=== PATIENT | male | born 1960 | race Caucasian/White ===

== ENCOUNTER 2019-05-01 12:47 | Inpatient (IN) | payer OTHER ==
[2019-05-01 16:00] VITALS: BMI 40.8
--- NOTE | 2019-05-01 17:46 | HP ---
CIWA Score Nausea/Vomitin-No Nausea/No Vomiting Muscle Tremors: 3 Anxiety: 3 Agitation: 3 Paroxysmal Sweats: 3 (Increased facial moisture) Orientation: 0-Oriented Tacttile Disturbances: 0-None Auditory Disturbances: 0-None Visual Disturbances: 0-None Headache: 0-None Present CIWA-Ar Total Score: 12 - Admission Criteria OASAS Guidelines: Admission for Medically Managed Detox: Requires at least one of the followin. CIWA greater than 12 2. Seizures within the past 24 hours 3. Delirium tremens within the past 24 hours 4. Hallucinations within the past 24 hours 5. Acute intervention needed for co occurring medical disorder 6. Acute intervention needed for co occurring psychiatric disorder 7. Severe withdrawal that cannot be handled at a lower level of care (continued vomiting, continued diarrhea, abnormal vital signs) requiring intravenous medication and/or fluids 8. Patient presents the following: CIWA greater than 12 (B/), Acute intervention needed for co-occurring med or psych disorder (B/P: 162/101) Admission Criteria Met: Admission criteria met Admission ROS [facility] Chief Complaint: I'm here for Alcohol detox Allergies/Adverse Reactions: Allergies Allergy/AdvReac Type Severity Reaction Status Date / Time haloperidol [From Haldol] Allergy Severe Rash Verified 05/01/19 15:37 History of Present Illness: First admission for this 59 yo who presents w/ alcohol withdrawal seeking detox. Utox: Neg FANTA: 0.0 Alcohol use began at age 14. States amount of use varies. States recently 4-5 cans daily. Sometimes w/ hard liquor. PMHx: HTN, Heart problem; Asthma; Pre-DM; Hypothyroid; Arthritis Swollen legs; Skin problems Current medications verified at [facility] - who has no record of levothyroxine. . Patient states is/was on Levothyroxine and picked up from [facility] ([phone]). States thinks it's been a couple of months since stopping. Pharmacy closed and unable to verify. MHHx: Schizo-affective disorder, Depression. Mood Swings. Past hx SI. Denies current thoughts of harming self or others. SHx: Homeless. Unemployed(SSI); Has legal issues to be taken care of. Search Terms: James Aguilar, 1960 Search Date: 05/01/2019 05:45:56 PM The Drug Utilization Report below displays all of the controlled substance prescriptions, if any, that your patient has filled in the last twelve months. The information displayed on this report is compiled from pharmacy submissions to the Department, and accurately reflects the information as submitted by the pharmacies. This report was requested by: Mikayla Abbasi Exam Limitations: No Limitations - Ebola screening Have you traveled outside of the country in the last 21 days: No Have you had contact with anyone from an Ebola affected area: No Have you been sick,other than usual withdrawal symptoms: No Do you have a fever: No - Review of Systems Constitutional: Chills EENT: reports: Cataracts, Blurred Vision, Dental Problems (Dentures. Chews and swallows ok.) Respiratory: reports: SOB with Exertion Cardiac: reports: No Symptoms Reported GI: reports: Diarrhea (Multiple watery brown BM's), Indigestion (Acid reflux) : reports: Burning (Urinary burning 1 week ago. Denies blood or burning at this time) Musculoskeletal: reports: Joint Pain (Dully ankle pain - increases w/ walking.) , Other (Pain in bones in chest x many years. No pain at this time) Integumentary: reports: Rash (On both legs. (R) > (L) x years;) Neuro: reports: Tremors, Unsteady Gait (Uses a cane) Endocrine: reports: No Symptoms Reported Hematology: reports: No Symptoms Reported Psychiatric: reports: Orientated x3, Agitated, Anxious, Depressed (Denies S/) Patient History - Patient Medical History Hx Asthma: No Hx Chronic Obstructive Pulmonary Disease (COPD): No Hx Cardiac Disorders: No Hx Hypertension: Yes Hx Seizures: Yes Hx Diabetes: No Hx Gastrointestinal Disorders: No Hx Genitourinary Disorders: No Hx Sexually Transmitted Disorders: Yes (Gonnerhea) Hx Renal Disease (ESRD): No Hx Depression: Yes Hx Suicide Attempt: Yes Hx Schizophrenia: No - Patient Surgical History Past Surgical History: No Hx Neurologic Surgery: No Hx Cataract Extraction: No Hx Cardiac Surgery: No Hx Lung Surgery: No Hx Breast Surgery: No Hx Breast Biopsy: No Hx Abdominal Surgery: No Hx Appendectomy: No Hx Cholecystectomy: No Hx Genitourinary Surgery: No Hx Section: No Hx Orthopedic Surgery: Yes (Elbow sx 1986) - PPD History Previous Implant?: Yes (Will order TB Gold test) Documented Results: Negative w/o proof Implanted On Prior [facility] Admission?: No PPD to be Administered?: No - Reproductive History Patient : No - Smoking Cessation Smoking history: Former smoker Have you smoked in the past 12 months: No Hx Chewing Tobacco Use: No Initiated information on smoking cessation: Yes 'Breaking Loose' booklet given: 05/01/19 - Substance & Tx. History Hx Alcohol Use: Yes Hx Substance Use: Yes Substance Use Type: Alcohol Hx Substance Use Treatment: Yes (detox, [facility] residence in past) - Substances abused Alcohol Substance route: Oral Frequency: Daily Amount used: it depends on whats available Age of first use: 14 Date of last use: 04/28/19 Admission Physical Exam BHS - Vital Signs Vital Signs: Vital Signs - 24 hr 05/01/19 05/01/19 15:36 17:11 Temperature 96.5 F L 96.5 F L Pulse Rate 76 76 Respiratory 20 20 Rate Blood Pressure 162/101 H 162/101 H - Physical General Appearance: Yes: Mild Distress, Obese, Tremorous, Sweating (Increased facial moisture), Anxious HEENTM: Yes: EOMI, Hearing grossly Normal, Normal Voice, ESTEBAN, Pharynx Normal Respiratory: Yes: Lungs Clear (Pulse Ox = 99%), Normal Breath Sounds, No Respiratory Distress Neck: Yes: No masses,lesions,Nodules, Supple Breast: Yes: Breast Exam Deferred Cardiology: Yes: Regular Rhythm, Regular Rate (HR: 82), S1, S2, Edema (Pitting edema toes to Below knee) Abdominal: Yes: Non Tender, Soft, Increased Bowel Sounds, Protuberent ( Increased abdominal adiposity) Genitourinary: Yes: Within Normal Limits Back: Yes: Normal Inspection Musculoskeletal: Yes: full range of Motion, Joint Stiffness (Ankle stiffness), Other (Gait steady w/ use of cane) Extremities: Yes: Normal Capillary Refill, Tremors (Mild tremors felt), Pedal Edema Neurological: Yes: internet marketing coordinator II-XII NML intact, Fully Oriented, Alert, Motor Strength 5/5 Integumentary: Yes: Warm, Diaphoresis (Increased facial moisture), Rash (dry, flaky skin of feet.), Other (Thickened, darkened, skin of both shins, trophic changes (R) > (L) . Pedla pulses palpated) Lymphatic: Yes: Within Normal Limits - Diagnostic (1) Alcohol dependence with uncomplicated withdrawal Current Visit: Yes Status: Acute (2) Essential (primary) hypertension Current Visit: Yes Status: Chronic (3) Obesity, morbid, BMI 40.0-49.9 Current Visit: Yes Status: Chronic (4) History of asthma Current Visit: Yes Status: Acute (5) Thyroid disorder Current Visit: Yes Status: Suspected (6) Tinea pedis Current Visit: Yes Status: Chronic Qualifiers: Laterality: bilateral Qualified Code(s): B35.3 - Tinea pedis (7) Skin and subcutaneous tissue disease Current Visit: Yes Status: Chronic Cleared for Admission [facility] - Detox or Rehab [facility] Level of Care: Medically Managed Detox Regimen/Protocol: Not Applicable (Will do a ativan detox. ) Claeared for Rehab Admission: No Breathalyzer - Breathalyzer Breathalyzer: 0 Urine Drug Screen - Test Device Lot number: [id number] Expiration date: 01/20/21 - Control Is test valid?: Yes - Results Drug screen NEGATIVE: Yes Inpatient Rehab Admission - Rehab Decision to Admit Inpatient rehab admission?: No
[2019-05-01] MEDS ORDERED: MELATONIN 5 MG TABLETS PO PRN (18:20)
[2019-05-01] MEDS ORDERED: MAG HYDROX/AL HYDROX/SIMETH 30 ML UNIT-DOSE CUP PO PRN (18:20)
[2019-05-01] MEDS ORDERED: METHOCARBAMOL 500 MG TABLET PO PRN (18:20)
[2019-05-01] MEDS ORDERED: MENTHOL/PHENOL 1 EACH UD MM PRN (18:20)
[2019-05-01] MEDS ORDERED: ACETAMINOPHEN 325 MG TABLET (FP) PO PRN ×2 (18:20)
[2019-05-01] MEDS ORDERED: MAGNESIUM CITRATE 300 ML BOTTLE PO PRN (18:20)
[2019-05-01] MEDS ORDERED: MAGNESIUM HYDROX 2400MG/30ML ORAL SUSPENSION 30 ML CUP PO PRN (18:20)
[2019-05-01] MEDS ORDERED: IBUPROFEN 400 MG TABLET (FP) PO PRN (18:20)
[2019-05-01] MEDS ORDERED: LORazepam 1 MG TABLET PO PRN (18:20)
[2019-05-01] MEDS ORDERED: ALBUTEROL SO4 0.083% IH SOL 2.5 MG/3 ML VIAL.NEB. NEB PRN (18:26)
[2019-05-01] MEDS ORDERED: cloNIDine HCL 0.1 MG TABLET PO ONE (19:25)
[2019-05-01] MEDS: TOLNAFTATE 1% CREAM 15 GM TUBE TP SCH (23:01)
[2019-05-01] MEDS: THIAMINE HCL 100 MG TABLET (FP) PO SCH (23:01)
[2019-05-01] MEDS: LORazepam 2 MG TABLET PO SCH (23:02)
[2019-05-02] MEDS: LORazepam 2 MG TABLET PO SCH ×4 (06:30→22:43)
[2019-05-02] MEDS: PANTOPRAZOLE 40 MG TABLET (FP) PO SCH (08:09)
[2019-05-02 10:04] LABS: HEMATOCRIT 44.7 % (35.4-49); HEMOGLOBIN 14.5 GM/dL (11.7-16.9); MCH 28.3 pg (25.7-33.7); MCHC 32.5 g/dl (32.0-35.9); MEAN CELL VOLUME 86.9 fl (80-96); MEAN PLT VOLUME 7.3 fl (7.5-11.1); PLATELET COUNT 311 K/MM3 (134-434); RBC 5.14 M/mm3 (4.00-5.60); RDW 15.3 % (11.9-15.9); WHITE BLOOD COUNT 6.6 K/mm3 (4.0-10.0)
[2019-05-02 10:20] LABS: ALBUMIN 3.2 g/dl (3.4-5.0); BILIRUBIN,TOTAL 0.5 mg/dL (0.2-1); BLOOD UREA NITROGEN 12.6 mg/dL (7-18); CALCIUM 9.3 mg/dL (8.5-10.1); CREATININE 0.7 mg/dL (0.55-1.3); POTASSIUM 3.5 mmol/L (3.5-5.1); TOT PROT 6.5 g/dl (6.4-8.2)
[2019-05-02] MEDS: HYDROCHLOROTHIAZIDE 12.5 MG CAPSULE (FP) PO SCH (10:23)
[2019-05-02] MEDS: amLODIPine BESYLATE 5 MG TABLET (FP) PO SCH (10:23)
[2019-05-02] MEDS: PRENATAL VITAMINS W/ FOLIC ACID TABLET (FP) PO SCH (10:23)
[2019-05-02] MEDS: ASPIRIN COATED 81 MG TABLET.EC PO SCH (10:23)
[2019-05-02] MEDS: TOLNAFTATE 1% CREAM 15 GM TUBE TP SCH ×2 (11:26→22:43)
[2019-05-02] MEDS: TIOTROPIUM BROMIDE 2.5 MCG (SPIRIVA) RESPIMAT INHALER IH SCH (11:26)
--- NOTE | 2019-05-02 11:37 | PN ---
S CIWA - CIWA Score Nausea/Vomitin-Mild Nausea/No Vomiting Muscle Tremors: 2 Anxiety: 2 Agitation: 2 Paroxysmal Sweats: 1-Minimal Palms Moist Orientation: 0-Oriented Tacttile Disturbances: 1-Very Mild Itch/Numbness Auditory Disturbances: 0-None Visual Disturbances: 0-None Headache: 1-Very Mild CIWA-Ar Total Score: 10 BHS Progress Note (SOAP) Subjective: alert,irritable,anxious,interrupted sleep,tremor Objective: 05/02/19 11:36 Vital Signs Temperature 97.2 F L 05/02/19 09:34 Pulse Rate 103 H 05/02/19 09:34 Respiratory Rate 20 05/02/19 09:34 Blood Pressure 107/68 05/02/19 09:34 O2 Sat by Pulse Oximetry (%) Laboratory Last Values WBC 6.6 K/mm3 (4.0-10.0) 05/02/19 08:00 RBC 5.14 M/mm3 (4.00-5.60) 05/02/19 08:00 Hgb 14.5 GM/dL (11.7-16.9) 05/02/19 08:00 Hct 44.7 % (35.4-49) 05/02/19 08:00 MCV 86.9 fl (80-96) 05/02/19 08:00 MCH 28.3 pg (25.7-33.7) 05/02/19 08:00 MCHC 32.5 g/dl (32.0-35.9) 05/02/19 08:00 RDW 15.3 % (11.9-15.9) 05/02/19 08:00 Plt Count 311 K/MM3 (134-434) 05/02/19 08:00 MPV 7.3 fl (7.5-11.1) L 05/02/19 08:00 Sodium 143 mmol/L (136-145) 05/02/19 08:00 Potassium 3.5 mmol/L (3.5-5.1) 05/02/19 08:00 Chloride 98 mmol/L (98-107) 05/02/19 08:00 Carbon Dioxide 35 mmol/L (21-32) H 05/02/19 08:00 Anion Gap 10 MMOL/L (8-16) 05/02/19 08:00 BUN 12.6 mg/dL (7-18) 05/02/19 08:00 Creatinine 0.7 mg/dL (0.55-1.3) 05/02/19 08:00 Est GFR (CKD-EPI)AfAm 120.56 05/02/19 08:00 Est GFR (CKD-EPI)NonAf 104.02 05/02/19 08:00 POC Glucometer 120 UNITS (80-120) 05/02/19 06:49 Random Glucose 126 mg/dL (74-106) H 05/02/19 08:00 Fasting Glucose 126 mg/dL (74-106) H 05/02/19 08:00 Calcium 9.3 mg/dL (8.5-10.1) 05/02/19 08:00 Total Bilirubin 0.5 mg/dL (0.2-1) 05/02/19 08:00 AST 14 U/L (15-37) L 05/02/19 08:00 ALT 21 U/L (13-61) 05/02/19 08:00 Alkaline Phosphatase 76 U/L (45-117) 05/02/19 08:00 Total Protein 6.5 g/dl (6.4-8.2) 05/02/19 08:00 Albumin 3.2 g/dl (3.4-5.0) L 05/02/19 08:00 Valproic Acid 6.3 ug/mL (50-100) L 05/02/19 08:00 RPR Titer Nonreactive (NONREACTIVE) 05/02/19 08:00 HIV 1&2 Antibody Screen Negative 05/02/19 08:00 HIV P24 Antigen Negative 05/02/19 08:00 05/02/19 11:38 quantiferon test pending Assessment: 05/02/19 11:37 withdrawal symptom Plan: continue detox ativan regimen,bgm monitoring
--- NOTE | 2019-05-02 13:08 | CONSULT ---
[facility] Psychiatric Consult - Data Date of interview: 05/02/19 Admission source: [facility] Identifying data: Patient is found asleep. Psychiatric examination deferred.
[2019-05-02] MEDS: THIAMINE HCL 100 MG TABLET (FP) PO SCH (22:43)
[2019-05-03] MEDS: LORazepam 1 MG TABLET PO SCH ×4 (05:40→22:14)
[2019-05-03] MEDS: PANTOPRAZOLE 40 MG TABLET (FP) PO SCH (07:47)
[2019-05-03] MEDS: TIOTROPIUM BROMIDE 2.5 MCG (SPIRIVA) RESPIMAT INHALER IH SCH (10:42)
[2019-05-03] MEDS: amLODIPine BESYLATE 5 MG TABLET (FP) PO SCH (10:44)
[2019-05-03] MEDS: ASPIRIN COATED 81 MG TABLET.EC PO SCH (10:44)
[2019-05-03] MEDS: TOLNAFTATE 1% CREAM 15 GM TUBE TP SCH ×2 (10:44→21:24)
[2019-05-03] MEDS: PRENATAL VITAMINS W/ FOLIC ACID TABLET (FP) PO SCH (10:44)
[2019-05-03] MEDS: HYDROCHLOROTHIAZIDE 12.5 MG CAPSULE (FP) PO SCH (10:44)
--- NOTE | 2019-05-03 11:33 | EKG ---
Test Reason : Blood Pressure : / mmHG Vent. Rate : 072 BPM Atrial Rate : 072 BPM P-R Int : 144 ms QRS Dur : 150 ms QT Int : 448 ms P-R-T Axes : 055 -20 023 degrees QTc Int : 490 ms NORMAL SINUS RHYTHM WITH SINUS ARRHYTHMIA RIGHT BUNDLE BRANCH BLOCK ABNORMAL ECG NO PREVIOUS ECGS AVAILABLE Confirmed by JASON KENNEDY, NOEMI ([id number]) on 05/03/2019 11:33:19 AM Referred By: KAROLINA Confirmed By:NOEMI GOMEZ MD
[2019-05-03] MEDS ORDERED: ALBUTEROL SO4 8 GM HFA INHALER IH PRN (13:18)
--- NOTE | 2019-05-03 15:35 | PN ---
S CIWA - CIWA Score Nausea/Vomitin-No Nausea/No Vomiting Muscle Tremors: 2 Anxiety: 2 Agitation: 2 Paroxysmal Sweats: No Perspiration Orientation: 0-Oriented Tacttile Disturbances: 0-None Auditory Disturbances: 0-None Visual Disturbances: 0-None Headache: 0-None Present CIWA-Ar Total Score: 6 S Progress Note (SOAP) Subjective: doing well with ativan detox regimen less tremor social with peer on hallway and day room Objective: 05/03/19 15:37 Vital Signs Temperature 97.9 F 05/03/19 13:40 Pulse Rate 100 H 05/03/19 13:40 Respiratory Rate 18 05/03/19 13:40 Blood Pressure 133/81 05/03/19 13:40 O2 Sat by Pulse Oximetry (%) Laboratory Last Values WBC 6.6 K/mm3 (4.0-10.0) 05/02/19 08:00 RBC 5.14 M/mm3 (4.00-5.60) 05/02/19 08:00 Hgb 14.5 GM/dL (11.7-16.9) 05/02/19 08:00 Hct 44.7 % (35.4-49) 05/02/19 08:00 MCV 86.9 fl (80-96) 05/02/19 08:00 MCH 28.3 pg (25.7-33.7) 05/02/19 08:00 MCHC 32.5 g/dl (32.0-35.9) 05/02/19 08:00 RDW 15.3 % (11.9-15.9) 05/02/19 08:00 Plt Count 311 K/MM3 (134-434) 05/02/19 08:00 MPV 7.3 fl (7.5-11.1) L 05/02/19 08:00 Sodium 143 mmol/L (136-145) 05/02/19 08:00 Potassium 3.5 mmol/L (3.5-5.1) 05/02/19 08:00 Chloride 98 mmol/L (98-107) 05/02/19 08:00 Carbon Dioxide 35 mmol/L (21-32) H 05/02/19 08:00 Anion Gap 10 MMOL/L (8-16) 05/02/19 08:00 BUN 12.6 mg/dL (7-18) 05/02/19 08:00 Creatinine 0.7 mg/dL (0.55-1.3) 05/02/19 08:00 Est GFR (CKD-EPI)AfAm 120.56 05/02/19 08:00 Est GFR (CKD-EPI)NonAf 104.02 05/02/19 08:00 POC Glucometer 111 UNITS (80-120) 05/02/19 16:28 Random Glucose 126 mg/dL (74-106) H 05/02/19 08:00 Fasting Glucose 126 mg/dL (74-106) H 05/02/19 08:00 Calcium 9.3 mg/dL (8.5-10.1) 05/02/19 08:00 Total Bilirubin 0.5 mg/dL (0.2-1) 05/02/19 08:00 AST 14 U/L (15-37) L 05/02/19 08:00 ALT 21 U/L (13-61) 05/02/19 08:00 Alkaline Phosphatase 76 U/L (45-117) 05/02/19 08:00 Total Protein 6.5 g/dl (6.4-8.2) 05/02/19 08:00 Albumin 3.2 g/dl (3.4-5.0) L 05/02/19 08:00 Valproic Acid 6.3 ug/mL (50-100) L 05/02/19 08:00 RPR Titer Nonreactive (NONREACTIVE) 05/02/19 08:00 HIV 1&2 Antibody Screen Negative 05/02/19 08:00 HIV P24 Antigen Negative 05/02/19 08:00 lab noted Assessment: 05/03/19 15:37 alcohol withdrawal sx Plan: continue ativan detox regimen
[2019-05-03 16:32] LABS: PH,URINE 6.5 (5.0-8.0); URINE APPEARANCE CLEAR; URINE BILIRUBIN NEGATIVE (NEGATIVE); URINE COLOR YELLOW; URINE GLUCOSE (UA) NEGATIVE (NEGATIVE); URINE KETONE NEGATIVE (NEGATIVE); URINE LEUK ESTERASE NEGATIVE (NEGATIVE); URINE NITRITE NEGATIVE (NEGATIVE); URINE PROTEIN NEGATIVE (NEGATIVE); URINE UROBILINOGEN 0.2 mg/dL (0.2-1.0)
[2019-05-03] MEDS: THIAMINE HCL 100 MG TABLET (FP) PO SCH (21:22)
[2019-05-04] MEDS ORDERED: LORazepam 0.5 MG TABLET PO PRN
[2019-05-04] MEDS: LORazepam 0.5 MG TABLET PO SCH ×4 (05:08→22:36)
[2019-05-04] MEDS: PANTOPRAZOLE 40 MG TABLET (FP) PO SCH (07:08)
[2019-05-04] MEDS: ASPIRIN COATED 81 MG TABLET.EC PO SCH (10:20)
[2019-05-04] MEDS: HYDROCHLOROTHIAZIDE 12.5 MG CAPSULE (FP) PO SCH (10:20)
[2019-05-04] MEDS: amLODIPine BESYLATE 5 MG TABLET (FP) PO SCH (10:21)
[2019-05-04] MEDS: TIOTROPIUM BROMIDE 2.5 MCG (SPIRIVA) RESPIMAT INHALER IH SCH (10:21)
[2019-05-04] MEDS: TOLNAFTATE 1% CREAM 15 GM TUBE TP SCH ×2 (10:21→22:36)
[2019-05-04] MEDS: PRENATAL VITAMINS W/ FOLIC ACID TABLET (FP) PO SCH (10:24)
--- NOTE | 2019-05-04 13:24 | PN ---
S CIWA - CIWA Score Nausea/Vomitin-Mild Nausea/No Vomiting Muscle Tremors: 1-None Visible, but [place] Anxiety: 2 Agitation: 2 Paroxysmal Sweats: No Perspiration Orientation: 0-Oriented Tacttile Disturbances: 0-None Auditory Disturbances: 0-None Visual Disturbances: 0-None Headache: 2-Mild CIWA-Ar Total Score: 8 S Progress Note (SOAP) Subjective: alert,irritable,anxious,interrupted sleep,ambulation with cane at home,history of diabetic neuropathy Objective: 05/04/19 13:23 Vital Signs Temperature 97.6 F 05/04/19 06:33 Pulse Rate 73 05/04/19 06:33 Respiratory Rate 18 05/04/19 06:33 Blood Pressure 146/81 05/04/19 06:33 O2 Sat by Pulse Oximetry (%) Assessment: 05/04/19 13:23 withdrawal symptom Plan: continue detox ativan regimen,bgm monitoring,ambulation with cane
[2019-05-04] MEDS: THIAMINE HCL 100 MG TABLET (FP) PO SCH (22:36)
[2019-05-05] MEDS ORDERED: LORazepam 0.5 MG TABLET PO ONE (05:00)
[2019-05-05] MEDS: PANTOPRAZOLE 40 MG TABLET (FP) PO SCH (06:17)
[2019-05-05 09:09] VITALS: BP 143/86; PULSE 101; TEMP 98.4
[2019-05-05] MEDS: TIOTROPIUM BROMIDE 2.5 MCG (SPIRIVA) RESPIMAT INHALER IH SCH (10:48)
[2019-05-05] MEDS: ASPIRIN COATED 81 MG TABLET.EC PO SCH (10:49)
[2019-05-05] MEDS: amLODIPine BESYLATE 5 MG TABLET (FP) PO SCH (10:49)
[2019-05-05] MEDS: HYDROCHLOROTHIAZIDE 12.5 MG CAPSULE (FP) PO SCH (10:49)
[2019-05-05] MEDS: PRENATAL VITAMINS W/ FOLIC ACID TABLET (FP) PO SCH (10:49)
[2019-05-05] MEDS: TOLNAFTATE 1% CREAM 15 GM TUBE TP SCH (10:50)
--- NOTE | 2019-05-05 14:58 | DS ---
[facility] Detox Discharge Summary Admission Date: 05/01/19 Discharge Date: 05/05/19 - History Present History: Alcohol Dependence Additional Comments: PATIENT GOING TO [facility] ([facility]) FOR AFTERCARE. PATIENT WAS DISCHARGED FROM DETOX UNIT TO BE TAKEN OVER TO REHAB UNIT IN STABLE MEDICAL CONDITION. Pertinent Past History: HTN, Depression, History Of Seizures, History Of Thyroid Disorder, Asthma, Tinea Pedis. - Physical Exam Results Vital Signs: Vital Signs Temperature 98.4 F 05/05/19 09:09 Pulse Rate 101 H 05/05/19 09:09 Respiratory Rate 18 05/05/19 09:09 Blood Pressure 143/86 05/05/19 09:09 O2 Sat by Pulse Oximetry (%) Pertinent Admission Physical Exam Findings: WITHDRAWAL SYMPTOMS. Laboratory Tests 05/01/19 05/02/19 05/02/19 22:57 06:49 08:00 WBC RBC Hgb Hct MCV MCH MCHC RDW Plt Count MPV Sodium Potassium Chloride Carbon Dioxide Anion Gap BUN Creatinine Est GFR (CKD-EPI)AfAm Est GFR (CKD-EPI)NonAf POC Glucometer 106 120 Random Glucose Fasting Glucose Calcium Total Bilirubin AST ALT Alkaline Phosphatase Total Protein Albumin Urine Color Urine Appearance Urine pH Ur Specific [place] Urine Protein Urine Glucose (UA) Urine Ketones Urine Blood Urine Nitrite Urine Bilirubin Urine Urobilinogen Ur Leukocyte Esterase Valproic Acid RPR Titer HIV 1&2 Antibody Screen Negative HIV P24 Antigen Negative TB (QFT) Incubation TB Test (QFT) Nil TB Test (QFT) Mitogen TB Test (QFT) Antigen TB Test (QFT) TB Positive Criteria 05/02/19 05/02/19 05/02/19 08:00 08:00 08:00 WBC 6.6 RBC 5.14 Hgb 14.5 Hct 44.7 MCV 86.9 MCH 28.3 MCHC 32.5 RDW 15.3 Plt Count 311 MPV 7.3 L Sodium 143 Potassium 3.5 Chloride 98 Carbon Dioxide 35 H Anion Gap 10 BUN 12.6 Creatinine 0.7 Est GFR (CKD-EPI)AfAm 120.56 Est GFR (CKD-EPI)NonAf 104.02 POC Glucometer Random Glucose 126 H Fasting Glucose 126 H Calcium 9.3 Total Bilirubin 0.5 AST 14 L ALT 21 Alkaline Phosphatase 76 Total Protein 6.5 Albumin 3.2 L Urine Color Urine Appearance Urine pH Ur Specific [place] Urine Protein Urine Glucose (UA) Urine Ketones Urine Blood Urine Nitrite Urine Bilirubin Urine Urobilinogen Ur Leukocyte Esterase Valproic Acid 6.3 L RPR Titer HIV 1&2 Antibody Screen HIV P24 Antigen TB (QFT) Incubation TB Test (QFT) Nil TB Test (QFT) Mitogen TB Test (QFT) Antigen TB Test (QFT) TB Positive Criteria 05/02/19 05/02/19 05/02/19 08:00 08:00 16:28 WBC RBC Hgb Hct MCV MCH MCHC RDW Plt Count MPV Sodium Potassium Chloride Carbon Dioxide Anion Gap BUN Creatinine Est GFR (CKD-EPI)AfAm Est GFR (CKD-EPI)NonAf POC Glucometer 111 Random Glucose Fasting Glucose Calcium Total Bilirubin AST ALT Alkaline Phosphatase Total Protein Albumin Urine Color Urine Appearance Urine pH Ur Specific [place] Urine Protein Urine Glucose (UA) Urine Ketones Urine Blood Urine Nitrite Urine Bilirubin Urine Urobilinogen Ur Leukocyte Esterase Valproic Acid RPR Titer Nonreactive HIV 1&2 Antibody Screen HIV P24 Antigen TB (QFT) Incubation TB Test (QFT) Nil 0.13 TB Test (QFT) Mitogen 6.42 TB Test (QFT) Antigen 0.13 TB Test (QFT) Negative TB Positive Criteria 05/03/19 05/03/19 05/04/19 14:05 16:29 05:10 WBC RBC Hgb Hct MCV MCH MCHC RDW Plt Count MPV Sodium Potassium Chloride Carbon Dioxide Anion Gap BUN Creatinine Est GFR (CKD-EPI)AfAm Est GFR (CKD-EPI)NonAf POC Glucometer 111 91 Random Glucose Fasting Glucose Calcium Total Bilirubin AST ALT Alkaline Phosphatase Total Protein Albumin Urine Color Yellow Urine Appearance Clear Urine pH 6.5 Ur Specific [place] 1.023 Urine Protein Negative Urine Glucose (UA) Negative Urine Ketones Negative Urine Blood Negative Urine Nitrite Negative Urine Bilirubin Negative Urine Urobilinogen 0.2 Ur Leukocyte Esterase Negative Valproic Acid RPR Titer HIV 1&2 Antibody Screen HIV P24 Antigen TB (QFT) Incubation TB Test (QFT) Nil TB Test (QFT) Mitogen TB Test (QFT) Antigen TB Test (QFT) TB Positive Criteria 05/04/19 05/05/19 16:20 06:27 WBC RBC Hgb Hct MCV MCH MCHC RDW Plt Count MPV Sodium Potassium Chloride Carbon Dioxide Anion Gap BUN Creatinine Est GFR (CKD-EPI)AfAm Est GFR (CKD-EPI)NonAf POC Glucometer 144 130 Random Glucose Fasting Glucose Calcium Total Bilirubin AST ALT Alkaline Phosphatase Total Protein Albumin Urine Color Urine Appearance Urine pH Ur Specific [place] Urine Protein Urine Glucose (UA) Urine Ketones Urine Blood Urine Nitrite Urine Bilirubin Urine Urobilinogen Ur Leukocyte Esterase Valproic Acid RPR Titer HIV 1&2 Antibody Screen HIV P24 Antigen TB (QFT) Incubation TB Test (QFT) Nil TB Test (QFT) Mitogen TB Test (QFT) Antigen TB Test (QFT) TB Positive Criteria LABS NOTED. - Treatment Hospital Course: Detox Protocol Followed, Detoxed Safely, Responded well, Discharged Condition Good, Rehab Referral Accepted Patient has Accepted a Rehab Referral to: [facility] ([place], [place]). - Medication Discharge Medications: Ambulatory Orders Amlodipine Besylate [Norvasc -] 5 mg PO DAILY 05/01/19 Aspirin [Aspirin EC] 81 mg PO DAILY 05/01/19 Benztropine Mesylate [Cogentin -] 1 mg PO BID 05/01/19 Divalproex [Depakote -] 250 mg PO BID 05/01/19 Hydrochlorothiazide [Hctz -] 12.5 mg PO DAILY 05/01/19 Risperidone [Risperdal] 1 mg PO BID 05/01/19 Tiotropium [place] [Spiriva] 1 inh PO DAILY 05/01/19 Albuterol Sulfate Inhaler - [Ventolin Hfa Inhaler -] 1 - 2 inh PO Q4H PRN - Diagnosis (1) Alcohol dependence with uncomplicated withdrawal Status: Acute (2) History of asthma Status: Acute (3) Essential (primary) hypertension Status: Chronic (4) Obesity, morbid, BMI 40.0-49.9 Status: Chronic (5) Skin and subcutaneous tissue disease Status: Chronic (6) Tinea pedis Status: Chronic Qualifiers: Laterality: bilateral Qualified Code(s): B35.3 - Tinea pedis (7) Thyroid disorder Status: Suspected - AMA Did Patient Leave Against Medical Advice: No BHS CIWA - CIWA Score Nausea/Vomitin-No Nausea/No Vomiting Muscle Tremors: None Anxiety: 1-Mildly Anxious Agitation: 2 Paroxysmal Sweats: No Perspiration Orientation: 0-Oriented Tacttile Disturbances: 0-None Auditory Disturbances: 0-None Visual Disturbances: 0-None Headache: 0-None Present CIWA-Ar Total Score: 3
== END 2019-05-05 11:58 | disposition other institution (70) | DRG 775 ==
LOC: YASAS 12:47 → Y3N 18:37
PROVIDERS: ADMIT Surgery; ATTEND Surgery
PROC: HZ2ZZZZ Detoxification Services for Substance Abuse Treatment (ICD-10-PCS; principal; 2019-05-01)
DX: F10.230 Alcohol dependence with withdrawal, uncomplicated (principal); I10 Essential (primary) hypertension; J45.909 Unspecified asthma, uncomplicated; E03.9 Hypothyroidism, unspecified; L98.8 Other specified disorders of the skin and subcutaneous tissue; B35.3 Tinea pedis; E66.01 Morbid (severe) obesity due to excess calories; Z68.41 Body mass index [BMI] 40.0-44.9, adult; R26.89 Other abnormalities of gait and mobility; Z99.89 Dependence on other enabling machines and devices; Z59.0 Homelessness
CPT/HCPCS: 36415; 80053; 80164; 81003; 82947; 82962; 84436; 85027; 86480; 86593; 87389; 93005; 93010; 94640

== ENCOUNTER 2019-05-05 12:03 | Inpatient (IN) | payer OTHER ==
[2019-05-05] MEDS ORDERED: guaiFENesin 200 MG/10 ML 10 ML UNIT-DOSE CUPS PO PRN (15:02)
[2019-05-05] MEDS ORDERED: MAG HYDROX/AL HYDROX/SIMETH 30 ML UNIT-DOSE CUP PO PRN (15:02)
[2019-05-05] MEDS ORDERED: P-EPHED 60MG/TRIPROLIDI 2.5MG TABLET PO PRN (15:02)
[2019-05-05] MEDS ORDERED: MAGNESIUM HYDROX 2400MG/30ML ORAL SUSPENSION 30 ML CUP PO PRN (15:02)
[2019-05-05] MEDS ORDERED: LOPERAMIDE HCL 2 MG CAPSULE PO PRN (15:02)
[2019-05-05] MEDS ORDERED: MENTHOL/PHENOL 1 EACH UD MM PRN (15:02)
[2019-05-05] MEDS ORDERED: MAGNESIUM CITRATE 300 ML BOTTLE PO PRN (15:02)
[2019-05-05] MEDS ORDERED: ACETAMINOPHEN 325 MG TABLET (FP) PO PRN (15:02)
--- NOTE | 2019-05-05 15:06 | HP ---
[facility] Rehab Assess/Revision - Admission History Admitted to Rehab from: [facility] Date of Admission to Rehab: 05/05/2019 - Vital signs Vital Signs: Vital Signs Period Temp Pulse Resp BP Sys/Rosales Pulse Ox Last 24 Hr 98.7 F 94 18 118/90 - Findings Detox History & Physical reviewed: Yes Concur with findings: Yes Comments/Additional Findings: PATIENT'S MEDICAL / MEDICATION HISTORY REVIEWED PRIOR TO DISCHARGE FROM DETOX UNIT. PATIENT WAS DISCHARGED FROM DETOX UNIT TO BE TAKEN OVER TO REHAB UNIT IN STABLE MEDICAL CONDITION. Inpatient Rehab Admission - Rehab Decision to Admit Inpatient rehab admission?: Yes - Initial Determination Are CD services needed?: Yes Free of communicable disease: Yes Not in need of hospitalization: Yes - Rehab Admission Criteria Previous failed treatment: No Poor recovery environment: Yes Comorbidities: Yes Lacks judgement: Yes Patient is meeting Inpatient Rehab admission criteria:: Yes
--- NOTE | 2019-05-05 15:20 | PN ---
[facility] Progress Note Note: PATIENT REPORTED AT TIME OF ADMISSION TO DETOX THAT HE BELIEVED THAT HE HAD BEEN PREVIOUSLY PRESCRIBED A MEDICATION FOR A THYROID DISORDER ON AN OUTPATIENT BASIS. HOWEVER, PATIENT WAS NOT CERTAIN ABOUT NAME OF MEDICATION OR ABOUT DOSAGE. ADMITTING MEDICAL PROVIDER UNABLE TO GET INTO CONTACT WITH PATIENT'S PHARMACY AT TIME OF ADMISSION TO DETOX TO INQUIRE FURTHER ABOUT MEDICATION. T4 LEVEL ORDERED AT [facility] OF ADMISSION TO DETOX, HOWEVER, LAB TEST WAS APPARENTLY NOT DONE. PER PHARMACIST AT [email or web address] ([place], [place]), PATIENT LAST FILLED PRESCRIPTION FOR LEVOTHYROXINE ON 03/13/2019. WILL ORDER TSH AND T4 LEVELS FOR 05/08/2019. MEDICATION TO ORDERED PENDING EVALUATION BY REHAB COVERING MEDICAL PROVIDER PENDING RESULTS OF THOSE TESTS WHEN AVAILABLE. Evens CHRISTIAN NP
[2019-05-05] MEDS: THIAMINE HCL 100 MG TABLET (FP) PO SCH (21:43)
[2019-05-05] MEDS ORDERED: MELATONIN 5 MG TABLETS PO PRN (22:00)
[2019-05-06] MEDS: PANTOPRAZOLE 40 MG TABLET (FP) PO SCH (06:21)
[2019-05-06] MEDS: HYDROCHLOROTHIAZIDE 12.5 MG CAPSULE (FP) PO SCH (09:24)
[2019-05-06] MEDS: PRENATAL VITAMINS W/ FOLIC ACID TABLET (FP) PO SCH (09:24)
[2019-05-06] MEDS: ASPIRIN COATED 81 MG TABLET.EC PO SCH (09:24)
[2019-05-06] MEDS: amLODIPine BESYLATE 5 MG TABLET (FP) PO SCH (09:24)
[2019-05-06] MEDS: TIOTROPIUM BROMIDE 2.5 MCG (SPIRIVA) RESPIMAT INHALER IH SCH (09:24)
[2019-05-06] MEDS: ALBUTEROL SO4 8 GM HFA INHALER IH PRN ×3 (09:25→18:14)
[2019-05-06] MEDS: THIAMINE HCL 100 MG TABLET (FP) PO SCH (21:06)
[2019-05-07] MEDS: PANTOPRAZOLE 40 MG TABLET (FP) PO SCH (05:59)
[2019-05-07 06:55] VITALS: TEMP 97.7
[2019-05-07] MEDS: amLODIPine BESYLATE 5 MG TABLET (FP) PO SCH (09:35)
[2019-05-07] MEDS: HYDROCHLOROTHIAZIDE 12.5 MG CAPSULE (FP) PO SCH (09:35)
[2019-05-07] MEDS: ASPIRIN COATED 81 MG TABLET.EC PO SCH (09:35)
[2019-05-07] MEDS: PRENATAL VITAMINS W/ FOLIC ACID TABLET (FP) PO SCH (09:35)
[2019-05-07] MEDS: TIOTROPIUM BROMIDE 2.5 MCG (SPIRIVA) RESPIMAT INHALER IH SCH (09:36)
[2019-05-07 11:37] VITALS: BP 138/82; PULSE 103
--- NOTE | 2019-05-07 19:00 | PN ---
[facility] Progress Note Note: patient did not want to complete treatment due to personal reason,high risk of relapsing explained,patient understood,seen by counselor, patient singed ladi gould,has all medication at home,will see his medical provider,advise to call 911 if any problem
--- NOTE | 2019-05-07 19:11 | DS ---
[facility] Rehab Discharge Summary - [facility] Rehab Discharge Summary Admission Date: 05/05/19 Discharge Date: 05/07/19 - History Present History: Alcohol dependence Pertinent Past History: hypertension asthma ambulation with cane tinea pedis hypothyroidism - Discharge Physical Exam Vital Signs: Vital Signs Temperature 97.7 F 05/07/19 06:54 Pulse Rate 103 H 05/07/19 10:00 Respiratory Rate 05/07/19 10:00 Blood Pressure 138/82 05/07/19 10:00 O2 Sat by Pulse Oximetry (%) Pertinent Admission Physical Exam Findings: Vital Signs Temperature 97.7 F 05/07/19 06:54 Pulse Rate 103 H 05/07/19 10:00 Respiratory Rate 05/07/19 10:00 Blood Pressure 138/82 05/07/19 10:00 O2 Sat by Pulse Oximetry (%) - Medication Discharge Medications: Ambulatory Orders Amlodipine Besylate [Norvasc -] 5 mg PO DAILY 05/01/19 Aspirin [Aspirin EC] 81 mg PO DAILY 05/01/19 Benztropine Mesylate [Cogentin -] 1 mg PO BID 05/01/19 Divalproex [Depakote -] 250 mg PO BID 05/01/19 Hydrochlorothiazide [Hctz -] 12.5 mg PO DAILY 05/01/19 Risperidone [Risperdal] 1 mg PO BID 05/01/19 Tiotropium [place] [Spiriva] 1 inh PO DAILY 05/01/19 Albuterol Sulfate Inhaler - [Ventolin Hfa Inhaler -] 1 - 2 inh PO Q4H PRN Levothyroxine Sodium [Synthroid] 150 mcg PO DAILY 05/05/19 - Medication-Assisted Treatment (MAT) Medication-Assisted Treatment (MAT): No - Discharge Instructions Diet, activity, other medical instructions: Diet: Activity: Other medical instructions: - Diagnosis (1) Alcohol dependence with uncomplicated withdrawal Current Visit: No Status: Acute (2) History of asthma Current Visit: No Status: Acute (3) Essential (primary) hypertension Current Visit: No Status: Chronic (4) Obesity, morbid, BMI 40.0-49.9 Current Visit: No Status: Chronic (5) Tinea pedis Current Visit: No Status: Chronic Qualifiers: (6) Hypothyroidism Current Visit: Yes Status: Acute - Follow-up Referral Minutes to complete discharge: 30 - AMA Did Patient Leave Against Medical Advice: Yes Additional Comments: patient left ama
== END 2019-05-07 18:45 | disposition left against medical advice (07) | DRG 770 ==
LOC: YASAS 12:03 → Y3W 12:06
PROVIDERS: ADMIT Neuromusculoskeletal Medicine & OMM; ATTEND Neuromusculoskeletal Medicine & OMM
PROC: HZ42ZZZ Group Counseling for Substance Abuse Treatment, Cognitive-Behavioral (ICD-10-PCS; principal; 2019-05-05)
DX: F10.20 Alcohol dependence, uncomplicated (principal); I10 Essential (primary) hypertension; B35.3 Tinea pedis; E03.9 Hypothyroidism, unspecified; J45.909 Unspecified asthma, uncomplicated; R73.03 Prediabetes; R60.0 Localized edema; E66.01 Morbid (severe) obesity due to excess calories; Z68.41 Body mass index [BMI] 40.0-44.9, adult; Z87.891 Personal history of nicotine dependence; Z59.0 Homelessness
CPT/HCPCS: 82962